=== PATIENT | female | born 1960 | race Two or more races ===

== ENCOUNTER 2025-09-29 19:20 | Inpatient (IN) | payer OTHER ==
[~2025-09-29] VITALS: Ht 154.9 cm; Wt 123.4 kg
[2025-09-29] MEDS ORDERED: ASPIRIN EC 325 MG TABLET.DR PO ONE (20:21)
[2025-09-29 20:27] LABS: PLATELET COUNT (AUTO) 189 K/uL (150-450); RED BLOOD CELL COUNT(AUTO) 2.80 MIL/uL (4.0-5.2); RED CELL DISTRIBUTION WIDTH 21.4 % (11.5-15.0); WHITE BLOOD COUNT (AUTO) 6.3 K/uL (4.3-11.0)
[2025-09-29] MEDS: ASPIRIN EC 325 MG TABLET.DR PO ONE (20:35)
[2025-09-29 20:38] LABS: CALCIUM, SERUM 7.9 mg/dL (8.5-10.1); CREATININE 0.4 mg/dL (0.6-1.3); SODIUM SERUM 137 mmol/L (136-145); UREA NITROGEN, BLOOD 11 mg/dL (7-18)
[2025-09-29 20:48] LABS: NT-PRO BNP 5044 pg/mL (0-125)
[2025-09-29 20:49] LABS: ASPARTATE AMINOTRANSFERASE 26 U/L (15-37); TOTAL PROTEIN, SERUM 6.8 g/dL (6.4-8.2)
[2025-09-29] MEDS: FUROSEMIDE 20 MG/2 ML VIAL IV ONE (21:20)
[2025-09-29] MEDS ORDERED: MAG HYDROX/AL HYDROX/SIMETH 30 ML UDC PO PRN (23:30)
[2025-09-29] MEDS ORDERED: MAGNESIUM HYDROXIDE 30 ML UDC PO PRN (23:30)
[2025-09-30] VITALS (8 sets, daily range): BP systolic 105–121; BP diastolic 67–75; TEMP 97.5–98.8; O2SAT 90–100
[2025-09-30] MEDS ORDERED: DEXTROSE 50%-WATER 50 ML DISP.SYRIN IV PRN (03:30)
[2025-09-30] MEDS ORDERED: PANT40TA49 PO (03:55)
[2025-09-30] MEDS ORDERED: AMIO200T5 GT (03:55)
[2025-09-30] MEDS ORDERED: IPRA3AMP22 IH (03:55)
[2025-09-30] MEDS ORDERED: FLUT16SP BNOSTRILS (03:55)
[2025-09-30] MEDS ORDERED: APIX5TAB PO (03:55)
[2025-09-30] MEDS ORDERED: CHOL210P2 PO (03:55)
[2025-09-30] MEDS ORDERED: ESCI10TA PO (03:55)
[2025-09-30] MEDS ORDERED: METO100T14 PO (03:55)
[2025-09-30] MEDS ORDERED: TAMS-12 PO (03:55)
[2025-09-30] MEDS ORDERED: ATOR80TA PO (03:55)
[2025-09-30] MEDS ORDERED: BUSP5TAB3 GT (03:55)
[2025-09-30] MEDS ORDERED: TRIA15CR2 TP (03:55)
[2025-09-30] MEDS ORDERED: [UNRECOGNIZED DRUG - CODE] GT (04:02)
[2025-09-30 06:10] LABS: PLATELET COUNT (AUTO) 173 K/uL (150-450); RED BLOOD CELL COUNT(AUTO) 2.73 MIL/uL (4.0-5.2); RED CELL DISTRIBUTION WIDTH 21.0 % (11.5-15.0); WHITE BLOOD COUNT (AUTO) 5.2 K/uL (4.3-11.0)
[2025-09-30] MEDS ORDERED: Medication Not On Formulary EA (Ipratropium/Albuterol Sulfate (Ipratr-Albuterol 0.5-3 Mg IH PRN (06:30)
[2025-09-30] MEDS ORDERED: TRIAMCINOLONE ACETONIDE 0.5% 15 GM TUBE TP PRN (06:30)
[2025-09-30] MEDS: BLOOD SUGAR DIAGNOSTIC 1 EACH STRIP IN SCH (06:39)
[2025-09-30] MEDS: INSULIN REGULAR, HUMAN 100 UNIT/ML 3 ML VIAL SQ PRN (06:39)
[2025-09-30 06:41] LABS: CALCIUM, SERUM 8.5 mg/dL (8.5-10.1); CREATININE 0.4 mg/dL (0.6-1.3); PHOSPHORUS 5.0 mg/dL (2.5-4.9); SODIUM SERUM 143.0 mmol/L (136-145); UREA NITROGEN, BLOOD 11.0 mg/dL (7-18)
[2025-09-30] MEDS ORDERED: POTA20PA41 GT (08:36)
[2025-09-30] MEDS: FUROSEMIDE 20 MG/2 ML VIAL IV SCH (08:36)
[2025-09-30] MEDS ORDERED: BISA10SU11 RC (08:36)
[2025-09-30] MEDS ORDERED: VANC125C11 GT (08:36)
[2025-09-30] MEDS: PANTOPRAZOLE 40 MG TABLET.DR PO SCH (08:36)
[2025-09-30] MEDS ORDERED: MAGN400O6 GT (08:36)
[2025-09-30] MEDS ORDERED: ERGO500093 GT (08:36)
[2025-09-30] MEDS ORDERED: INSU100V3 SQ (08:36)
[2025-09-30] MEDS ORDERED: ACET-868 TD (08:36)
[2025-09-30] MEDS: CHOLESTYRAMINE/ASPARTAME 4 G/PKT PACKET PO SCH (08:36)
[2025-09-30] MEDS ORDERED: NA P133E RC (08:36)
[2025-09-30] MEDS: TAMSULOSIN 0.4 MG CAP.SR.24H PO SCH (08:37)
[2025-09-30] MEDS: ASPIRIN 81 MG TAB.CHEW PO SCH (08:37)
[2025-09-30] MEDS: AMIODARONE HCL 200 MG TABLET PO SCH (08:37)
[2025-09-30] MEDS: ESCITALOPRAM OXALATE (10 MG) 10 MG TABLET PO SCH (08:37)
[2025-09-30] MEDS: APIXABAN 5 MG TABLET PO SCH (08:45)
[2025-09-30] MEDS: METOPROLOL TARTRATE 50 MG TABLET PO SCH (08:45)
[2025-09-30] MEDS ORDERED: PANTOPRAZOLE 40 MG TABLET.DR PO SCH (09:00)
[2025-09-30] MEDS: IPRATROPIUM NEB FS 0.5 MG/2.5 ML AMPUL.NEB NEB SCH (10:00)
[2025-09-30 10:24] LABS: ABG BASE EXCESS 14.1 mmol/L (-2.0-3.0); ABG OXYGEN SATURATION 97.1 % (94.0-98.0); ABG PCO2 72.4 mmHg (32.0-45.0); ABG PH 7.378 (7.350-7.450); ABG PO2 100.8 mmHg (83.0-108.0); ABG TOTAL HEMOGLOBIN 10.0 G/dL (12.0-16.0); FLOW, BLOOD GAS 4.00 L/min (0.00-30.00); FRACTIONATED INSPIRED OXYGEN 36.0 %; SITE, ABG RIGHT RADIAL
[2025-09-30] MEDS ORDERED: IV NS 0.9% 250 ML IV ONE (11:10)
[2025-09-30] MEDS ORDERED: CT SWABBABLE VALVE TRANS SET 1 EA INFUS.SET MC ONE (11:10)
[2025-09-30] MEDS ORDERED: IOHEXOL-350 100 ML VIAL IV ONE (11:10)
[2025-09-30] MEDS: Z GUARD REMEDY 4 OZ OINT TP PRN (12:04)
[2025-09-30] MEDS: NYSTATIN TOP POWDER 15 GM BOTTLE TP SCH (12:04)
[2025-09-30] MEDS: Z GUARD REMEDY 4 OZ OINT TP SCH (12:06)
[2025-09-30] MEDS: VANCOMYCIN HCL 125 MG/2.5 ML ORAL.SUSP GT SCH (12:11)
[2025-09-30] MEDS: VITAL AF 1.2 1,000 ML BOTTLE GT SCH (13:22)
[2025-09-30] MEDS: AMIODARONE 450 MG in IV D5W 241 ML IV PRN (14:05)
[2025-09-30] MEDS: AMIODARONE 150 MG in IV D5W 100 ML IV ONE (14:14)
[2025-09-30] MEDS: ACETAMINOPHEN 325 MG TABLET PO PRN (15:46)
[2025-09-30] MEDS ORDERED: MAGNESIUM HYDROXIDE 30 ML UDC GT PRN (16:00)
[2025-09-30] MEDS: CLOTRIMAZOLE 1% 15 GM TUBE TP SCH (16:56)
[2025-09-30] MEDS: CHOLESTYRAMINE/ASPARTAME 4 G/PKT PACKET GT SCH (16:57)
[2025-09-30] MEDS: METOPROLOL TARTRATE 50 MG TABLET GT SCH (16:57)
[2025-09-30] MEDS: APIXABAN 5 MG TABLET GT SCH (16:59)
[2025-09-30] MEDS: ATORVASTATIN 40 MG TABLET GT SCH (21:02)
[2025-09-30] MEDS ORDERED: ATORVASTATIN 40 MG TABLET PO SCH (22:00)
[2025-10-01] VITALS (8 sets, daily range): BP systolic 101–105; BP diastolic 63–67; TEMP 97.7–97.8; O2SAT 90–99
[2025-10-01 06:18] LABS: ABG BASE EXCESS 14.9 mmol/L (-2.0-3.0); ABG OXYGEN SATURATION 91.9 % (94.0-98.0); ABG PCO2 63.5 mmHg (32.0-45.0); ABG PH 7.432 (7.350-7.450); ABG PO2 67.7 mmHg (83.0-108.0); ABG TOTAL HEMOGLOBIN 10.1 G/dL (12.0-16.0); FLOW, BLOOD GAS 2.00 L/min (0.00-30.00); FRACTIONATED INSPIRED OXYGEN 28.0 %; SITE, ABG LEFT BRACHIAL
[2025-10-01 08:14] LABS: ASPARTATE AMINOTRANSFERASE 25.0 U/L (15-37); TOTAL PROTEIN, SERUM 6.8 g/dL (6.4-8.2)
[2025-10-01] MEDS: FLUTICASONE PROPIONATE 16 GM BOTTLE NS PRN (08:56)
[2025-10-01] MEDS: PANTOPRAZOLE 40 MG/PACK PACK GT SCH (08:57)
[2025-10-01] MEDS: TAMSULOSIN 0.4 MG CAP.SR.24H GT SCH (08:57)
[2025-10-01] MEDS: ESCITALOPRAM OXALATE (10 MG) 10 MG TABLET GT SCH (09:01)
[2025-10-01] MEDS: ASPIRIN 81 MG TAB.CHEW GT SCH (09:01)
[2025-10-01] MEDS: AMIODARONE HCL 200 MG TABLET PO SCH (11:54)
[2025-10-01] MEDS: ONDANSETRON HCL/PF 4 MG/2 ML VIAL IVP PRN (19:55)
[2025-10-02] VITALS (12 sets, daily range): BP systolic 91–118; BP diastolic 53–74; TEMP 97.6–98.2; O2SAT 90–100
[2025-10-03] VITALS (15 sets, daily range): BP systolic 89–120; BP diastolic 59–81; TEMP 97.5–98.4; O2SAT 90–100
[2025-10-04] VITALS (12 sets, daily range): BP systolic 94–135; BP diastolic 44–86; TEMP 97.5–98.7; O2SAT 20–99
[2025-10-04] MEDS: BUMETANIDE INJ 8 MG in IV NS 0.9% 48 ML IV ONE (11:22)
[2025-10-04] MEDS: POTASSIUM CHLORIDE 20 MEQ TAB.PRT.SR PO SCH (11:22)
[2025-10-05] VITALS (12 sets, daily range): BP systolic 110–140; BP diastolic 67–89; TEMP 97.8–98.1; O2SAT 90–98
[2025-10-05 07:08] LABS: PLATELET COUNT (AUTO) 162 K/uL (150-450); RED BLOOD CELL COUNT(AUTO) 2.96 MIL/uL (4.0-5.2); RED CELL DISTRIBUTION WIDTH 19.9 % (11.5-15.0); WHITE BLOOD COUNT (AUTO) 6.6 K/uL (4.3-11.0)
[2025-10-05 07:18] LABS: ASPARTATE AMINOTRANSFERASE 16.0 U/L (15-37); CALCIUM, SERUM 8.2 mg/dL (8.5-10.1); CREATININE 0.4 mg/dL (0.6-1.3); PHOSPHORUS 4.5 mg/dL (2.5-4.9); SODIUM SERUM 147.0 mmol/L (136-145); TOTAL PROTEIN, SERUM 7.0 g/dL (6.4-8.2); UREA NITROGEN, BLOOD 16.0 mg/dL (7-18)
[2025-10-05] MEDS: PROSOURCE / PROSTAT (PYXIS) 30 ML UDC GT SCH (16:51)
[2025-10-06] VITALS (11 sets, daily range): BP systolic 94–152; BP diastolic 60–85; TEMP 97.2–98.4; O2SAT 91–100
[2025-10-06] MEDS: VANCOMYCIN HCL 125 MG/2.5 ML ORAL.SUSP GT SCH (09:43)
[2025-10-07] VITALS (12 sets, daily range): BP systolic 102–134; BP diastolic 64–106; TEMP 97.5–98.3; O2SAT 88–99
[2025-10-07] MEDS: ALBUTEROL FS 2.5 MG/3 ML VIAL.NEB NEB PRN (12:39)
[2025-10-08] VITALS (12 sets, daily range): BP systolic 106–124; BP diastolic 51–81; TEMP 97.5–97.9; O2SAT 89–97
[2025-10-09] VITALS (10 sets, daily range): BP systolic 102–125; BP diastolic 70–80; TEMP 97.4–98.4; O2SAT 87–96
[2025-10-10] VITALS (12 sets, daily range): BP systolic 101–131; BP diastolic 63–89; TEMP 97.5–98.1; O2SAT 92–97
[2025-10-10 07:45] LABS: PLATELET COUNT (AUTO) 194 K/uL (150-450); RED BLOOD CELL COUNT(AUTO) 3.03 MIL/uL (4.0-5.2); RED CELL DISTRIBUTION WIDTH 19.1 % (11.5-15.0); WHITE BLOOD COUNT (AUTO) 8.6 K/uL (4.3-11.0)
[2025-10-10 07:58] LABS: CALCIUM, SERUM 8.5 mg/dL (8.5-10.1); CREATININE 0.5 mg/dL (0.6-1.3); PHOSPHORUS 3.9 mg/dL (2.5-4.9); SODIUM SERUM 144.0 mmol/L (136-145); UREA NITROGEN, BLOOD 25.0 mg/dL (7-18)
[2025-10-10] MEDS: TRAMADOL HCL 50 MG TABLET PO SCH (14:57)
[2025-10-11] VITALS (11 sets, daily range): BP systolic 116–129; BP diastolic 72–87; TEMP 96.4–98.4; O2SAT 88–95
[2025-10-11 11:06] LABS: PLATELET COUNT (AUTO) 219 K/uL (150-450); RED BLOOD CELL COUNT(AUTO) 2.94 MIL/uL (4.0-5.2); RED CELL DISTRIBUTION WIDTH 19.8 % (11.5-15.0); WHITE BLOOD COUNT (AUTO) 8.3 K/uL (4.3-11.0)
[2025-10-11 12:59] LABS: CALCIUM, SERUM 8.6 mg/dL (8.5-10.1); CREATININE 0.6 mg/dL (0.6-1.3); SODIUM SERUM 144.0 mmol/L (136-145); UREA NITROGEN, BLOOD 33.0 mg/dL (7-18)
[2025-10-11 20:56] LABS: OCCULT BLOOD STOOL POSITIVE (NEGATIVE)
[2025-10-12] VITALS (12 sets, daily range): BP systolic 101–121; BP diastolic 70–91; TEMP 97–98.4; O2SAT 90–98
[2025-10-12] MEDS: FUROSEMIDE 20 MG/2 ML VIAL IV SCH (22:05)
[2025-10-13] VITALS (15 sets, daily range): BP systolic 92–111; BP diastolic 75–89; TEMP 97.1–98.9; O2SAT 88–98
[2025-10-13] MEDS ORDERED: VANCOMYCIN HCL 125 MG/2.5 ML ORAL.SUSP GT SCH (09:00)
[2025-10-13] MEDS: AMIODARONE HCL 200 MG TABLET PO SCH (09:33)
[2025-10-13] MEDS: IPRATROPIUM NEB FS 0.5 MG/2.5 ML AMPUL.NEB NEB PRN (18:14)
[2025-10-14] VITALS (28 sets, daily range): BP systolic 114–140; BP diastolic 62–93; TEMP 97.5–98.9; O2SAT 89–100
[2025-10-14 06:37] LABS: CALCIUM, SERUM 8.7 mg/dL (8.5-10.1); CREATININE 0.6 mg/dL (0.6-1.3); SODIUM SERUM 141.0 mmol/L (136-145); UREA NITROGEN, BLOOD 33.0 mg/dL (7-18)
[2025-10-14 06:38] LABS: PLATELET COUNT (AUTO) 202 K/uL (150-450); RED BLOOD CELL COUNT(AUTO) 3.24 MIL/uL (4.0-5.2); RED CELL DISTRIBUTION WIDTH 18.6 % (11.5-15.0); WHITE BLOOD COUNT (AUTO) 8.5 K/uL (4.3-11.0)
[2025-10-14 06:44] LABS: INR 1.41 (0.91-1.10)
[2025-10-14] MEDS ORDERED: LIDOCAINE HCL/MPF 1% 30 ML VIAL IJ ONE (14:56)
[2025-10-14] MEDS ORDERED: IODIXANOL 150 ML IV ONE (14:56)
[2025-10-14] MEDS ORDERED: FENTANYL PF 100MCG/2ML AMPUL ONE (15:32)
[2025-10-14] MEDS: BUMETANIDE INJ 6 MG in IV NS 0.9% 36 ML IV ONE (17:33)
[2025-10-15] VITALS (36 sets, daily range): BP systolic 100–137; BP diastolic 71–92; TEMP 98–98.6; O2SAT 92–100
[2025-10-15 16:14] LABS: ABG BASE EXCESS 13.9 mmol/L (-2.0-3.0); ABG OXYGEN SATURATION 92.4 % (94.0-98.0); ABG PCO2 67.7 mmHg (32.0-45.0); ABG PH 7.402 (7.350-7.450); ABG PO2 68.1 mmHg (83.0-108.0); ABG TOTAL HEMOGLOBIN 10.8 G/dL (12.0-16.0); FLOW, BLOOD GAS 4.00 L/min (0.00-30.00); FRACTIONATED INSPIRED OXYGEN 37.0 %; SITE, ABG RIGHT BRACHIAL
[2025-10-15] MEDS: METOPROLOL TARTRATE 25 MG TABLET PO SCH (18:15)
[2025-10-15] MEDS: BUMETANIDE INJ 6 MG in IV NS 0.9% 36 ML IV ONE (18:16)
[2025-10-16] VITALS (21 sets, daily range): BP systolic 89–112; BP diastolic 56–85; TEMP 98–99.1; O2SAT 90–100
[2025-10-16 10:27] LABS: PLATELET COUNT (AUTO) 214 K/uL (150-450); RED BLOOD CELL COUNT(AUTO) 2.87 MIL/uL (4.0-5.2); RED CELL DISTRIBUTION WIDTH 18.5 % (11.5-15.0); WHITE BLOOD COUNT (AUTO) 13.9 K/uL (4.3-11.0)
[2025-10-16 10:35] LABS: CALCIUM, SERUM 7.6 mg/dL (8.5-10.1); CREATININE 0.7 mg/dL (0.6-1.3); SODIUM SERUM 138.0 mmol/L (136-145); UREA NITROGEN, BLOOD 29.0 mg/dL (7-18)
[2025-10-16] MEDS: Magnesium 1GM/D5W 100ML PREMIX 100 ML IV SCH (11:37)
[2025-10-16] MEDS: POTASSIUM CHLORIDE 20 MEQ POWDER PACKET GT ONE (11:38)
[2025-10-16] MEDS: POTASSIUM CHLORIDE 20 MEQ TAB.PRT.SR PO ONE (18:05)
[2025-10-16] MEDS: BUMETANIDE INJ 8 MG in IV NS 0.9% 48 ML IV ONE (18:16)
[2025-10-17] VITALS (10 sets, daily range): BP systolic 95–111; BP diastolic 66–73; TEMP 97.3–99.1; O2SAT 93–98
[2025-10-17 10:30] LABS: PLATELET COUNT (AUTO) 222 K/uL (150-450); RED BLOOD CELL COUNT(AUTO) 2.67 MIL/uL (4.0-5.2); RED CELL DISTRIBUTION WIDTH 18.8 % (11.5-15.0); WHITE BLOOD COUNT (AUTO) 12.5 K/uL (4.3-11.0)
[2025-10-17] MEDS: BUMETANIDE INJ 6 MG in IV NS 0.9% 36 ML IV ONE (14:28)
[2025-10-18] VITALS (14 sets, daily range): BP systolic 93–113; BP diastolic 69–80; TEMP 97.4–98.4; O2SAT 91–98
[2025-10-18] MEDS: BUMETANIDE (1 MG) 1 MG TABLET PO SCH (09:03)
[2025-10-18 09:08] LABS: CALCIUM, SERUM 7.8 mg/dL (8.5-10.1); CREATININE 0.6 mg/dL (0.6-1.3); SODIUM SERUM 140.0 mmol/L (136-145); UREA NITROGEN, BLOOD 34.0 mg/dL (7-18)
[2025-10-19] VITALS (12 sets, daily range): BP systolic 98–149; BP diastolic 63–78; TEMP 98.1–98.6; O2SAT 91–99
[2025-10-20] VITALS (11 sets, daily range): BP systolic 94–119; BP diastolic 58–72; TEMP 97.4–97.9; O2SAT 93–100
[2025-10-20 06:49] LABS: CALCIUM, SERUM 7.9 mg/dL (8.5-10.1); CREATININE 0.5 mg/dL (0.6-1.3); SODIUM SERUM 136.0 mmol/L (136-145); UREA NITROGEN, BLOOD 28.0 mg/dL (7-18)
== END 2025-10-20 18:26 | DRG 286 ==
LOC: ER 19:32 → TELE 09-30 00:29 → TELE1 09-30 21:06 → TELE-TD 10-01 07:44 → TELE1 10-01 16:08 → ICU 10-14 16:34 → TELE1 10-16 14:18
PROVIDERS: ADMIT Nurse Practitioner Family
PROC: 5A09357 Assistance with Respiratory Ventilation, Less than 24 Consecutive Hours, Continuous Positive Airway Pressure (ICD-10-PCS; principal; 2025-10-01)
PROC: 5A09357 Assistance with Respiratory Ventilation, Less than 24 Consecutive Hours, Continuous Positive Airway Pressure (ICD-10-PCS; 2025-10-09)
PROC: 4A023N6 Measurement of Cardiac Sampling and Pressure, Right Heart, Percutaneous Approach (ICD-10-PCS; 2025-10-14)
PROC: B214YZZ Fluoroscopy of Right Heart using Other Contrast (ICD-10-PCS; 2025-10-14)
DX: I11.0 Hypertensive heart disease with heart failure (principal); E43 Unspecified severe protein-calorie malnutrition; I50.33 Acute on chronic diastolic (congestive) heart failure; J96.22 Acute and chronic respiratory failure with hypercapnia; J96.21 Acute and chronic respiratory failure with hypoxia; I27.20 Pulmonary hypertension, unspecified; J90 Pleural effusion, not elsewhere classified; L89.156 Pressure-induced deep tissue damage of sacral region; I48.20 Chronic atrial fibrillation, unspecified; Z79.01 Long term (current) use of anticoagulants; E66.2 Morbid (severe) obesity with alveolar hypoventilation; F33.9 Major depressive disorder, recurrent, unspecified; D63.8 Anemia in other chronic diseases classified elsewhere; E11.65 Type 2 diabetes mellitus with hyperglycemia; J44.9 Chronic obstructive pulmonary disease, unspecified; I69.391 Dysphagia following cerebral infarction; D68.59 Other primary thrombophilia; E44.1 Mild protein-calorie malnutrition; Z68.43 Body mass index [BMI] 50.0-59.9, adult; J98.11 Atelectasis; I48.91 Unspecified atrial fibrillation; E88.09 Other disorders of plasma-protein metabolism, not elsewhere classified; E78.5 Hyperlipidemia, unspecified; Z86.718 Personal history of other venous thrombosis and embolism; Z86.711 Personal history of pulmonary embolism; Z90.49 Acquired absence of other specified parts of digestive tract; R13.10 Dysphagia, unspecified; I25.10 Atherosclerotic heart disease of native coronary artery without angina pectoris; D53.9 Nutritional anemia, unspecified; Z53.20 Procedure and treatment not carried out because of patient's decision for unspecified reasons; Z79.899 Other long term (current) drug therapy; Z87.891 Personal history of nicotine dependence; Z93.1 Gastrostomy status; Z86.19 Personal history of other infectious and parasitic diseases; Z79.4 Long term (current) use of insulin; Z79.51 Long term (current) use of inhaled steroids; L98.9 Disorder of the skin and subcutaneous tissue, unspecified
CPT/HCPCS: 36415; 36600; 71045-TC; 71250-TC; 74230-TC; 76604-TC; 80048-TC; 80053-TC; 80076-TC; 82272-TC; 82803-TC; 82962-TC; 83735-TC; 83880; 84100-TC; 84443-TC; 84484-TC; 85025-TC; 85610-TC; 85730-TC; 87081-TC; 92526; 92611; 93307-TC; 93970-TC; 94660; 94760-TC; 94762-TC; 94799-TC; 97110-TC; 97112-TC; 97530-TC; 97535-TC; A4223; A6403; G0378; J0282; J1644; J1815; J1938; J2405; J3010; J3475; J3490; J7050; J7060; Q9967